=== PATIENT | male | born 1955 | race Caucasian/White ===

== ENCOUNTER 2023-06-28 12:00 | Emergency (ER) | payer BC, MEDICAID ==
[~2023-06-28] VITALS: Ht 167.6 cm; Wt 73.3 kg
[~2023-06-28 12:00] MED LIST: ASPI-1397 PO; ATOR40TA72 PO; CLOP75TA34 PO; COR3.125T PO; ISOS30TA84 PO; OMEP20CA16 PO
[2023-06-28 12:17] VITALS: BP 113/77; PULSE 76; RESP 16; TEMP 98; O2SAT 97
== END 2023-06-28 14:45 | disposition left against medical advice (07) ==
LOC: ER 12:01
DX: R07.89 Other chest pain (principal); Z53.21 Procedure and treatment not carried out due to patient leaving prior to being seen by health care provider
CPT/HCPCS: 71045; 93005; 99281; 99283

== ENCOUNTER 2024-02-12 17:30 | Emergency (ER) | payer BC, MEDICAID, OTHER ==
[~2024-02-12] VITALS: Ht 172.7 cm; Wt 78.2 kg
[2024-02-12 17:44] VITALS: BP 139/83; PULSE 71; TEMP 97.4; O2SAT 98
[2024-02-12] MEDS ORDERED: LIDO700A32 TOP (19:45)
[2024-02-12] MEDS ORDERED: CYCL-1 PO (19:45)
[2024-02-12 19:57] VITALS: RESP 18
--- NOTE | 2024-02-12 20:03 | NUR ---
PT AND PT FRIEND WHO IS WITH HIM CAME OUT OF ROOM NUMEROUS TIMES AFTER BEING TOLD THEY NEED TO STAY IN ROOM FOR PRIVACY OF OTHER PATIENTS. PT'S FRIEND NOT REDIRECTABLE AND CONTINUES TO WANDER UNIT AFTER MULTIPLE STAFF HAVE REQUESTED SHE STAY IN PT ROOM OR GO OUT TO LOBBY. CRN AND PROVIDER NOTIFIED.
== END 2024-02-12 20:06 | disposition home or self-care (01) ==
LOC: ER 17:31
DX: R07.81 Pleurodynia (principal); I25.10 Atherosclerotic heart disease of native coronary artery without angina pectoris; I10 Essential (primary) hypertension; I25.2 Old myocardial infarction; Z88.0 Allergy status to penicillin; Z91.013 Allergy to seafood
CPT/HCPCS: 71101; 99283